=== PATIENT | female | born 1990 | race African-American/Black ===

== ENCOUNTER 2018-06-15 21:23 | Emergency (ER) | payer OTHER ==
[~2018-06-15] VITALS: Ht 177.8 cm; Wt 109.0 kg
[2018-06-16 02:50] LABS: BASOPHILS % 1.1 % (0.0-2.0); EOSINOPHILS % 1.3 % (0.0-5.0); HEMATOCRIT. 40.6 % (36.0-48.0); HEMOGLOBIN. 13.7 g/dL (12.0-16.0); LYMPHOCYTES % 31.3 % (20.0-50.0); MEAN CORPUSCULAR HEMOGLOBIN 30.4 pg (28.0-32.0); MEAN CORPUSCULAR VOLUME 90.2 fL (81.0-99.0); MEAN PLATELET VOLUME 7.2 fl (7.4-10.4); NEUTROPHILS % 61.3 % (40.0-76.0); PLATELET 238 x1000/uL (130-400); RED CELL DISTRIBUTION WIDTH 14.2 % (11.6-14.6)
[2018-06-16 02:54] LABS: CHLORIDE 109 mEq/L (98-107)
[2018-06-16] MEDS ORDERED: WARFARIN SODIUM 5MG TABLET PO ONE (03:30)
[2018-06-16] MEDS ORDERED: ENOXAPARIN 100MG/ML SYR SUBCUT ONE (03:30)
[2018-06-16 04:03] VITALS: BP 139/96
== END 2018-06-16 04:13 | disposition home or self-care (01) ==
LOC: ER 21:23
DX: I82.411 Acute embolism and thrombosis of right femoral vein (principal)
CPT/HCPCS: 36415; 80048; 85025; 93971; 96372; 99285; J1650